=== PATIENT | male | born 1965 | race African-American/Black ===

== ENCOUNTER 2018-02-12 17:42 | Inpatient (IN) | payer OTHER ==
[~2018-02-12] VITALS: Ht 180.3 cm; Wt 83.9 kg
--- NOTE | 2018-02-12 17:50 | NUR ---
[employer] FROM CARE HOME: VH=[id number] IN CARE HOME; DIBETIC FOOT ULCER. PATIENT IS A/OX 4. BREATHING EVEN AND UNLABORED. NO SOB, NAD, VITALS STABLE. RIGHT FOOT SLIGHTLY SWOLLEN. SAFETY AND COMFORT MEASURES IN PLACE. AWAITING MD ORDERS.
[2018-02-12] MEDS ORDERED: IV NS 0.9% 1,000 ML BAG IV STA (17:55)
--- NOTE | 2018-02-12 17:55 | NUR ---
NEW IV STARTED ON LAC, 20G, BLOOD DRAWN AND SENT TO LAB.
[2018-02-12 18:04] LABS: BASOPHILS # (AUTO) 0.1 /CMM (0.0-0.2); EOSINOPHILS % (AUTO) 2.1 % (0.0-6.0); HEMATOCRIT 41 % (39-51); HEMOGLOBIN 13.9 g/dL (13.5-17.5); LYMPHOCYTES # (AUTO) 2.3 /CMM (0.8-4.8); LYMPHOCYTES % (AUTO) 36.4 % (20.0-44.0); MEAN CORPUSCULAR HGB CONC 34 g/dl (31.0-36.0); MEAN CORPUSCULAR VOLUME 89 fL (80-96); MONOCYTES # (AUTO) 0.6 /CMM (0.1-1.30); NEUTROPHILS # (AUTO) 3.3 /CMM (1.8-8.9); NEUTROPHILS % (AUTO) 51.5 % (43.0-81.0); PLATELET COUNT (AUTO) 287 /CMM (150-450); RDW COEFFICIENT OF VARIATION 13.6 (11.5-15.0); RED BLOOD CELL COUNT(AUTO) 4.56 MIL/uL (4.5-6.0); WHITE BLOOD COUNT (AUTO) 6.4 K/uL (4.3-11.0)
--- NOTE | 2018-02-12 18:05 | NUR ---
IVF GIVEN VIA LAC, 20G, PER MD ORDERS.
--- NOTE | 2018-02-12 18:12 | NUR ---
technical marketing consultant at bs
[2018-02-12 18:22] LABS: CALCIUM, SERUM 8.8 mg/dL (8.5-10.1); CREATININE 1.1 mg/dL (0.6-1.3); POTASSIUM 4.7 mmol/L (3.5-5.1)
[2018-02-12 18:30] LABS: BILIRUBIN,TOTAL 0.2 mg/dL (0.2-1.0); TOTAL PROTEIN, SERUM 7.1 g/dL (6.4-8.2)
[2018-02-12] MEDS ORDERED: METF-440 PO (18:59)
[2018-02-12] MEDS ORDERED: INSU100V7 SQ (18:59)
[2018-02-12] MEDS ORDERED: INSU100V3 SQ (18:59)
[2018-02-12] MEDS ORDERED: CEFTRIAXONE 1GM BAG (ER ONLY) 50 ML IV ONE ×2 (19:00→19:02)
[2018-02-12] MEDS ORDERED: VANCOMYCIN 1 GM in IV D5W 250 ML IV ONE (19:00)
[2018-02-12] MEDS ORDERED: IV NS 0.9% 1,000 ML BAG IV ONE (19:00)
--- NOTE | 2018-02-12 19:03 | NUR ---
PER AMELIE THAKKAR, ONLY ADMINISTER 1 MORE LITER OF NS, NOT 2600ML.
--- NOTE | 2018-02-12 19:14 | NUR ---
REPORT GIVEN TO SHITAL RODRIGUEZ FOR VIOLETA.
--- NOTE | 2018-02-12 19:18 | NUR ---
CALLED [employer] ANESTHESIA ASSISTANT WAS PAGED.
[2018-02-12] MEDS ORDERED: VANCOMYCIN 1 GM VIAL ONE (19:19)
--- NOTE | 2018-02-12 19:59 | NUR ---
REPORT GIVEN TO WILDA RODRIGUEZ FOR VIOLETA.
[2018-02-12] MEDS ORDERED: hydrALAZINE HCL IV 20 MG VIAL ONE (20:16)
[2018-02-12] MEDS ORDERED: hydrALAZINE HCL IV 20 MG VIAL IV ONE (20:30)
--- NOTE | 2018-02-12 20:57 | NUR ---
TRANSFERRED PATIENT TO TELE BED 314-1 VIA ALS PROTOCOL, NO INCIDENT NOTED.
[2018-02-12 21:00] VITALS: BP 133/91
--- NOTE | 2018-02-12 21:00 | NUR ---
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 ROOM ORIENTATION PROVIDED, CALL LIGHTS WITHIN REACH, BED IN LOCK POSITION, WILL MONITOR.
--- NOTE | 2018-02-12 22:10 | NUR ---
tele/rn notes patietn admitted due to osateomyelitis, on pain of 8/10, with as needed morphine 25mg ivp, will monitor effectiveness.
[2018-02-12] MEDS ORDERED: Z GUARD REMEDY 2 OZ OINT TP PRN (22:30)
[2018-02-12] MEDS ORDERED: ACETAMINOPHEN 325 MG TABLET PO PRN (22:30)
[2018-02-12] MEDS ORDERED: ZOLPIDEM TARTRATE 5 MG TABLET PO PRN (22:30)
[2018-02-12] MEDS ORDERED: ONDANSETRON HCL/PF 4 MG/2 ML VIAL IVP PRN (22:30)
[2018-02-12] MEDS ORDERED: MAGNESIUM HYDROXIDE 30 ML UDC PO PRN (22:30)
[2018-02-12] MEDS ORDERED: DEXTROSE 50%-WATER 50 ML DISP.SYRIN IV PRN (22:30)
[2018-02-12] MEDS: ENOXAPARIN SODIUM 40 MG/0.4 ML DISP.SYRIN SQ SCH (22:58)
[2018-02-12] MEDS: INSULIN GLARGINE, 100 UNIT/ML CARTRIDGE SQ SCH (22:59)
[2018-02-12] MEDS: MORPHINE SULFATE INJ 2 MG/ML DISP.SYRIN IV PRN (23:19)
[2018-02-12] MEDS: INSULIN REGULAR, HUMAN 100 UNIT/ML 3 ML VIAL SQ PRN (23:48)
[2018-02-12] MEDS: IV NS 0.9% 1,000 ML IV PRN (23:50)
[2018-02-13] MEDS: BLOOD SUGAR DIAGNOSTIC 1 EACH STRIP IN SCH ×6 (01:21→21:21)
[2018-02-13] MEDS: INSULIN REGULAR, HUMAN 100 UNIT/ML 3 ML VIAL SQ PRN ×4 (01:22→21:27)
--- NOTE | 2018-02-13 04:53 | NUR ---
TELE/RN NOTES BS CHECK AT 61, ALERT, ORIENTED, ABLE TO TOLERTAE ORANGE JUICE, REQUESTED FOR SOME SNACKS OF CRACKERS AND MILK.
--- NOTE | 2018-02-13 06:31 | NUR ---
314-1 ms/rn notes PATIENT IN BED, ABLE TO SLEEP DURING THE NIGHT, MONITORING FOR HYPO/HYPERGLYCEMIA AND PAIN. ALERT, ORIENTES X3, CALL LIGHTS WITHIN REACH, BED IN LOCK POSITION, KEEP COMFORTBLE, RESPIRATIONS EVEN AND UNLABORED, WILL ENDORSE TO AM RN FOR VIOLETA.
[2018-02-13 07:19] LABS: BASOPHILS % (AUTO) 0.7 % (0.0-2.0); EOSINOPHILS % (AUTO) 3.3 % (0.0-6.0); HEMATOCRIT 38 % (39-51); HEMOGLOBIN 12.6 g/dL (13.5-17.5); LYMPHOCYTES # (AUTO) 1.8 /CMM (0.8-4.8); LYMPHOCYTES % (AUTO) 33.1 % (20.0-44.0); MEAN CORPUSCULAR HGB CONC 33 g/dl (31.0-36.0); MEAN CORPUSCULAR VOLUME 90 fL (80-96); MONOCYTES # (AUTO) 0.8 /CMM (0.1-1.30); MONOCYTES % (AUTO) 13.7 % (2.0-12.0); NEUTROPHILS # (AUTO) 2.7 /CMM (1.8-8.9); NEUTROPHILS % (AUTO) 49.2 % (43.0-81.0); PLATELET COUNT (AUTO) 251 /CMM (150-450); RDW COEFFICIENT OF VARIATION 14.6 (11.5-15.0); RED BLOOD CELL COUNT(AUTO) 4.23 MIL/uL (4.5-6.0); WHITE BLOOD COUNT (AUTO) 5.5 K/uL (4.3-11.0)
[2018-02-13 07:54] LABS: ALBUMIN 2.8 g/dL (3.4-5.0); BILIRUBIN,TOTAL 0.2 mg/dL (0.2-1.0); CALCIUM, SERUM 8.6 mg/dL (8.5-10.1); CREATININE 0.9 mg/dL (0.6-1.3); MAGNESIUM 1.9 mg/dL (1.8-2.4); PHOSPHORUS 3.7 mg/dL (2.5-4.9); POTASSIUM 4.3 mmol/L (3.5-5.1); TOTAL PROTEIN, SERUM 6.5 g/dL (6.4-8.2)
[2018-02-13 08:00] VITALS: BP 157/95
--- NOTE | 2018-02-13 08:00 | NUR ---
rn notes RECEIVED PATIENT IN THE BED, A/O X4, NO ACUTE RESPIRATORY DISTRESS, V/S STABLE, BS-231 MG/DL, SCHEDULED MEDICATION ADMINISTERED, V/S STABLE, ALSO PATIENT WAS C/O PAIN LOWER BACK PAIN SCALE OF 8/10, NEEDS ATTENDED AND ANTICIPATED, IV LINE ON LEFT AC INTACT INFUSING NS AT 75 ML/HR. CONTINUED MONITORING.
[2018-02-13 08:01] LABS: THYROID STIMULATING HORMONE 1.407 uIU/mL (0.358-3.74)
[2018-02-13] MEDS: PANTOPRAZOLE 40 MG TABLET.DR PO SCH (08:46)
[2018-02-13] MEDS: METFORMIN 500 MG TABLET PO SCH ×2 (08:46→16:43)
[2018-02-13] MEDS ORDERED: FEE PK DOSING 1 MIN EA MC ONE (08:47)
[2018-02-13] MEDS: MORPHINE SULFATE INJ 2 MG/ML DISP.SYRIN IV PRN ×2 (08:48→16:47)
--- NOTE | 2018-02-13 08:48 | NUR ---
RN NOTES ADMINISTERED MORPHINE 2 MG/ML IV PUSH PAIN 06/23 PER PATIENT REQUEST, BP- 157/95, P-81, CONTINUED MONITORING.
[2018-02-13] MEDS: VANCOMYCIN 1.25 GM in IV NS 0.9% 500 ML IV SCH ×2 (09:23→17:03)
--- NOTE | 2018-02-13 12:28 | NUR ---
RN NOTES BS-257 MG/DL, ADMINISTERED 12 UNITS OF COVERAGE, , MEDICATION WERE ADMINISTERED FOR PAIN EFFECTIVE, CALL LIGHT WITHIN TO REACH, CONTINUED MONITORING.
[2018-02-13 16:00] VITALS: BP 131/74
--- NOTE | 2018-02-13 16:47 | NUR ---
RN NOTES ADMINISTERED MORPHINE 2 GM/ML IV PUSH PER PATIENT REQUEST FOR LOWER BACK PAIN 05/23, V/S TAKEN BP -145/78, P-78, CONTINUED MONITORING.
--- NOTE | 2018-02-13 17:50 | NUR ---
RN NOTES WOUND CULTURE TAKEN PER ORDER OF Dr. SLOAN, V/S STABLE, BS-132 MG/DL COVERAGE GIVE, SCHEDULED MEDICATION ADMINISTERED, NEEDS ATTENDED AND ANTICIPATED, APPLIED DRY DRESSING ON RIGHT FOOD, NEEDS ATTENDED AND ANTICIPATED, CONTINUED MONITORING.
--- NOTE | 2018-02-13 18:51 | NUR ---
RN NOTES PATIENT IN THE BED, NO ACUTE DISTRESS, INFUSING VANCOMYCIN 250 ML/HR AT THIS TIME, PATIENT BED REST, SCHEDULED MEDICATION ADMINISTERED, MEDICATION WERE ADMINISTERED FOR PAIN EFFECTIVE. CALL LIGHT WITHIN TO REACH, CONTINUED MONITORING. ENDORSED ONCOMING NURSE FOR VIOLETA.
[2018-02-13] MEDS ORDERED: CEFTRIAXONE 2 G in IV NS 0.9% 100 ML IV SCH (19:00)
--- NOTE | 2018-02-13 19:50 | NUR ---
MS RN NOTE: PATIENT RESTING IN BED, NO ACUTE DISTRESS NOTED. BREATHING EVEN AND UNLABORED, NO SOB NOTED. IV TO LAC IN PLACE, INFUSING NS AT 75 ML/HR. UNDER CUSTODY, POLICE AT BEDSIDE. NO S/S OF HYPER/HYPOGLYCEMIA NOTED. PATIENT WILL ORDERS FOR MRI OF RIGHT FOOT TO RULE OUT OSTEOMYELITIS, QUESTIONNAIRE COMPLETED, SIGNED AND FILED IN CHART. BED LOCKED AND IN LOWEST POSITION, CALL LIGHT IN REACH. WILL CONTINUE TO MONITOR
[2018-02-13 20:00] VITALS: BP 156/87
[2018-02-13] MEDS: IV NS 0.9% 1,000 ML IV PRN (21:21)
[2018-02-13] MEDS: INSULIN GLARGINE, 100 UNIT/ML CARTRIDGE SQ SCH (21:26)
[2018-02-13] MEDS: ENOXAPARIN SODIUM 40 MG/0.4 ML DISP.SYRIN SQ SCH (21:35)
[2018-02-13] MEDS: MORPHINE SULFATE INJ 4 MG/ML DISP.SYRIN IV PRN (21:35)
--- NOTE | 2018-02-13 21:45 | NUR ---
MS RN NOTE: PATIENT COMPLAINS OF PAIN 9/10 TO RIGHT FOOT, MORPHINE 2MG IV GIVEN PER MD ORDER. PATIENT BLOOD SUGAR LEVEL 269MG/DL, PATIENT TO RECEIVE LANTUS 20 UNITS PER MD ORDER AND 12 UNITS OF INSULIN PER SLIDING SCALE. NO S/S OF HYPERGLYCEMIA NOTED. WILL CONTINUE TO MONITOR.
[2018-02-14] MEDS: BLOOD SUGAR DIAGNOSTIC 1 EACH STRIP IN SCH ×3 (01:13→09:17)
[2018-02-14] MEDS: VANCOMYCIN 1.25 GM in IV NS 0.9% 500 ML IV SCH ×2 (01:13→09:40)
[2018-02-14] MEDS: INSULIN REGULAR, HUMAN 100 UNIT/ML 3 ML VIAL SQ PRN ×3 (01:19→09:16)
--- NOTE | 2018-02-14 01:45 | NUR ---
MS RN NOTE: PATIENT BLOOD SUGAR LEVEL 188 MG/DL, PATIENT TO RECEIVE 4 UNITS OF INSULIN PER SLIDING SCALE. NO S/S OF HYPER/HYPOGLYCEMIA NOTED. WILL CONTINUE TO MONITOR.
[2018-02-14] MEDS: MORPHINE SULFATE INJ 4 MG/ML DISP.SYRIN IV PRN ×2 (04:47→08:08)
--- NOTE | 2018-02-14 06:05 | NUR ---
MS RN NOTE: PATIENT RESTING IN BED, NO ACUTE DISTRESS NOTED. BREATHING EVEN AND UNLABORED, NO SOB NOTED. IV TO LAC IN PLACE, INFUSING NS AT 75 ML/HR. UNDER CUSTODY, POLICE AT BEDSIDE. NO S/S OF HYPER/HYPOGLYCEMIA NOTED. BED LOCKED AND IN LOWEST POSITION, CALL LIGHT IN REACH. WILL ENDORSE TO DAY NURSE TO CONTINUE WITH PLAN OF CARE.
--- NOTE | 2018-02-14 07:30 | NUR ---
M/S RN - AM Notes Received patient in bed awake, A/O x 4, afebrile, denies pain, not in any form of distress, blood sugar this morning above 200's. Patient remain in custody, [employer] at bedside. Patient scheduled for MRI of the right foot r/o osteomyelitis. Surgical consult for possible osteomyelitis. Patient currently on Vanco and Rocephin. All needs attended and met. Will continue with current medical management.
--- NOTE | 2018-02-14 07:37 | NUR ---
WOUND CONSULT WOUND CARE RECEIVED CONSULT FOR FOOT OSTEO AND NON-HEALING WOUND. WOUND CARE WILL DEFER TO SURGICAL TEAM FOR CONSULT AND ALL TREATMENT PLANS THEY ARE CURRENTLY FOLLOWING. PATIENT WITH KATHERINE AT 22.
[2018-02-14 08:00] VITALS: BP 128/88
[2018-02-14] MEDS: METFORMIN 500 MG TABLET PO SCH (08:08)
[2018-02-14] MEDS: PANTOPRAZOLE 40 MG TABLET.DR PO SCH (08:08)
[2018-02-14 09:15] LABS: CALCIUM, SERUM 8.8 mg/dL (8.5-10.1); CREATININE 0.9 mg/dL (0.6-1.3); POTASSIUM 4.6 mmol/L (3.5-5.1)
--- NOTE | 2018-02-14 09:16 | NUR ---
M/S RN - Accu-check FSBS result was 168 mg/dL, 4 units of regular insulin given per sliding scale coverage. Patient released from police custody.
--- NOTE | 2018-02-14 09:20 | NUR ---
M/S RN - [employer] custody Spoke with police aide and asked if there's a paperwork for custody release, officer stated "We don't do paperwork for custody release."
--- NOTE | 2018-02-14 09:45 | NUR ---
M/S RN - MRI Patient taken to MRI in no acute distress. Vancomycin infusion stopped.
--- NOTE | 2018-02-14 11:03 | NUR ---
M/S RN - AMA Patient returned from MRI and wanted to leave AMA, stated "My mom and I need to leave the hospital now." Explained to pt the risks and consequences of leaving AMA. Patient verbalized understanding and is continuing with the decision to leave AMA. Patient signed AMA form and belongings list, and refused his discharge papers. Patient refused photos to be taken on his right foot wound. Patient is ambulatory, afebrile, vitals stable, denies pain at this time. All belongings with patient and he denies any missing items. Saline lock removed on the LAC with catheter tip intact, no redness, no swelling noted at the site. Per patient, sister is waiting in the lobby.
[2018-02-14] MEDS ORDERED: LACTOBACILLUS RHAMNOSUS GG 1 EACH CAP.SPRINK PO SCH (17:00)
== END 2018-02-14 11:54 | disposition left against medical advice (07) | DRG 344 ==
LOC: ER 17:44 → TELE 20:31 → MED 22:58
PROVIDERS: ADMIT Nurse Practitioner Acute Care; ATTEND Nurse Practitioner Acute Care
DX: E11.69 Type 2 diabetes mellitus with other specified complication (principal); M86.9 Osteomyelitis, unspecified; M86.8X7 Other osteomyelitis, ankle and foot; N17.0 Acute kidney failure with tubular necrosis; E11.621 Type 2 diabetes mellitus with foot ulcer; E87.1 Hypo-osmolality and hyponatremia; E11.65 Type 2 diabetes mellitus with hyperglycemia; F32.9 Major depressive disorder, single episode, unspecified; F17.210 Nicotine dependence, cigarettes, uncomplicated; Z79.4 Long term (current) use of insulin; Z89.421 Acquired absence of other right toe(s); L97.513 Non-pressure chronic ulcer of other part of right foot with necrosis of muscle
CPT/HCPCS: 36415; 73630-TC; 73718-TC; 80048-TC; 80053-TC; 80061-TC; 80202-TC; 82962-TC; 83605-TC; 83735-TC; 84100-TC; 84443-TC; 85025-TC; 87040-TC; 87070-TC; 87081-TC; 87186-TC; A4216; A4606; A6402; J0360; J0696; J1650; J1815; J2270; J3370; J7030; J7040; Z7610

== ENCOUNTER 2018-02-19 07:36 | Emergency (ER) | payer OTHER ==
[~2018-02-19] VITALS: Ht 182.9 cm; Wt 84.4 kg
[~2018-02-19 07:36] MED LIST: INSU100V3 SQ; INSU100V7 SQ; METF-440 PO
--- NOTE | 2018-02-19 07:52 | NUR ---
PT WALKED IN TO ER W/ C/O OF RT FOOT PAIN, ADMITTED LAST WK FOR OSTEOMYELITIS BUT SIGNED AMA BECAUSE HIS MOTHER . PT IS ALSO COMPLAINING OF LOW BACK PAIN. NAD VSS RR EVEN AND UNLABORED. PENDING ER MD EVALUATION
[2018-02-19] MEDS ORDERED: IV NS 0.9% 500 ML IV ONE (08:30)
[2018-02-19 08:46] LABS: BASOPHILS % (AUTO) 0.5 % (0.0-2.0); EOSINOPHILS % (AUTO) 2.4 % (0.0-6.0); HEMATOCRIT 40 % (39-51); HEMOGLOBIN 13.4 g/dL (13.5-17.5); LYMPHOCYTES # (AUTO) 2.7 /CMM (0.8-4.8); LYMPHOCYTES % (AUTO) 40.8 % (20.0-44.0); MEAN CORPUSCULAR HGB CONC 34 g/dl (31.0-36.0); MEAN CORPUSCULAR VOLUME 89 fL (80-96); MONOCYTES # (AUTO) 0.7 /CMM (0.1-1.30); NEUTROPHILS % (AUTO) 45.3 % (43.0-81.0); PLATELET COUNT (AUTO) 277 /CMM (150-450); RDW COEFFICIENT OF VARIATION 14.1 (11.5-15.0); RED BLOOD CELL COUNT(AUTO) 4.42 MIL/uL (4.5-6.0); WHITE BLOOD COUNT (AUTO) 6.7 K/uL (4.3-11.0)
[2018-02-19 09:03] LABS: ALBUMIN 3.6 g/dL (3.4-5.0); BILIRUBIN,TOTAL 0.4 mg/dL (0.2-1.0); CALCIUM, SERUM 9.2 mg/dL (8.5-10.1); POTASSIUM 4.3 mmol/L (3.5-5.1); TOTAL PROTEIN, SERUM 7.9 g/dL (6.4-8.2)
[2018-02-19] MEDS ORDERED: INSULIN REGULAR, HUMAN 100 UNIT/ML 10 ML VIAL IV ONE (09:30)
[2018-02-19] MEDS ORDERED: INSU100V10 SQ (09:57)
[2018-02-19] MEDS ORDERED: LISI10TA5 PO (09:57)
[2018-02-19] MEDS ORDERED: INSULIN REGULAR, HUMAN 100 UNIT/ML 10 ML VIAL ONE (10:00)
--- NOTE | 2018-02-19 10:57 | NUR ---
RECIEVED A PHONE CALL FROM [facility], INSTRUCTED FOR DR BENITA ALONSO W/ DR. [phone] FAX FACESHEET TO- [phone]
--- NOTE | 2018-02-19 10:59 | NUR ---
FACESHEET AND 'S NOTE FAXED TO [phone]
--- NOTE | 2018-02-19 11:00 | NUR ---
DR. CORDON SPOKE TO DR. CAZARES
--- NOTE | 2018-02-19 11:59 | NUR ---
[id number] [phone] TRANSPO-- [phone]
[2018-02-19] MEDS ORDERED: HYDROCODONE/APAP 5/325MG 1 EACH TABLET PO ONE (12:00)
[2018-02-19] MEDS ORDERED: PIPERACILLIN /TAZOBACTAM 3.375 G in IV D5W 50 ML IV ONE (12:00)
[2018-02-19] MEDS ORDERED: ONDANSETRON 4 MG TAB.RAPDIS PO ONE (12:00)
[2018-02-19] MEDS ORDERED: HYDROCODONE/APAP 5/325MG 1 EACH TABLET ONE (12:01)
[2018-02-19] MEDS ORDERED: ONDANSETRON 4 MG TAB.RAPDIS ONE (12:02)
--- NOTE | 2018-02-19 12:02 | NUR ---
REPORT GIVE TO [id number] EXT. [phone]
[2018-02-19 15:18] VITALS: BP 144/80
--- NOTE | 2018-02-19 15:44 | NUR ---
PT WAS PICKED UP BY [facility] GOING TO [facility]. VSS
== END 2018-02-19 15:45 ==
LOC: ER 07:42
DX: E11.52 Type 2 diabetes mellitus with diabetic peripheral angiopathy with gangrene (principal); E11.69 Type 2 diabetes mellitus with other specified complication; M86.9 Osteomyelitis, unspecified; F17.200 Nicotine dependence, unspecified, uncomplicated; Z79.4 Long term (current) use of insulin; Z79.84 Long term (current) use of oral hypoglycemic drugs
CPT/HCPCS: 36415; 73630-TC; 80053-TC; 82962-TC; 85025-TC; 85652-TC; 87070-TC; 87186-TC; A4606; J1815; J2543; J7040; J7060; Q0162; Z7610